=== PATIENT | male | born 1985 | race Asian ===

== ENCOUNTER 2017-10-15 05:50 | Emergency (ER) | payer OTHER ==
--- NOTE | 2017-10-15 05:58 | PDOC ---
History of Present Illness - General Chief Complaint: Pain, Acute Stated Complaint: ABD PAIN Time Seen by Provider: 10/15/17 05:58 History Source: Patient Exam Limitations: No Limitations - History of Present Illness Initial Comments: 10/15/17 06:37 32M with no pmh present with fever, headache, weakness and dark bloody stool since Wednesday morning. No BM yesterday. Tylenol helped briefly with the headache but worse now. Never happened to him before. On amoxicillin regimen a month ago for sinus infection. 10/15/17 06:45 Past History - Past Medical History Allergies/Adverse Reactions: Allergies Allergy/AdvReac Type Severity Reaction Status Date / Time No Known Allergies Allergy Verified 10/15/17 05:57 Home Medications: Ambulatory Orders NK [No Known Home Medication] 02/06/15 Anemia: No Asthma: No Cancer: No Cardiac Disorders: No CVA: No COPD: No CHF: No Dementia: No Diabetes: No GI Disorders: No Disorders: No HTN: No Hypercholesterolemia: No Liver Disease: No Seizures: No Thyroid Disease: No - Surgical History Orthopedic Surgery: Yes (LEFT KNEE ARTHROSCOPY 2013) - Suicide/Smoking/Psychosocial Hx Smoking History: Never smoked Have you smoked in the past 12 months: No Hx Alcohol Use: No Drug/Substance Use Hx: No Substance Use Type: None Review of Systems - Review of Systems Able to Perform ROS?: Yes Is the patient limited Montenegrin proficient: Yes Constitutional: Yes: Diaphoresis, Weakness HEENTM: No: Symptoms Reported Respiratory: No: Symptoms reported Cardiac (ROS): No: Symptoms Reported ABD/GI: Yes: Nausea, Rectal Bleeding. No: Symptoms Reported, Abd. Pain w/ defecation, Constipated, Diarrhea, Vomiting : No: Symptoms Reported Musculoskeletal: No: Symptoms Reported Integumentary: No: Symptoms Reported Neurological: No: Symptoms reported All Other Systems: Reviewed and Negative *Physical Exam - Physical Exam General Appearance: Yes: Nourished, Appropriately Dressed. No: Apparent Distress HEENT: positive: EOMI, BRENNAN Neck: negative: Tender, Other Respiratory/Chest: positive: Lungs Clear, Normal Breath Sounds. negative: Chest Tender, Respiratory Distress Cardiovascular: positive: Regular Rhythm, S1, S2, Tachycardia Gastrointestinal/Abdominal: positive: Normal Bowel Sounds, Flat, Soft. negative : Protuberent, Guarding, Spleenomegaly Rectal Exam: positive: normal exam, normal rectal tone. negative: melena, hemorrhoids Musculoskeletal: positive: Normal Inspection. negative: CVA Tenderness Extremity: positive: Delayed Capillary Refill. negative: Normal Capillary Refill Medical Decision Making - Medical Decision Making 10/15/17 06:50 evaluation of anemia cbc, cmp, stool guaiac NS, zofran, morphine and Ct abdomen with PO and IV contrast 10/15/17 07:05 Patient signed out to Dr. Arango *DC/Admit/Observation/Transfer Diagnosis at time of Disposition: Rectal bleeding - Referrals - Patient Instructions - Post Discharge Activity
[2017-10-15 05:59] VITALS: BMI 28.3
--- NOTE | 2017-10-15 06:18 | PDOC ---
Attending Attestation - Resident Resident Name: Otto Anton - ED Attending Attestation I have performed the following: I have examined & evaluated the patient, The case was reviewed & discussed with the resident, I agree w/resident's findings & plan, Exceptions are as noted - HPI HPI: 10/15/17 06:16 fever, headache, and abdominal pain for 1 day. Last meal was 1pm yesterday. Denies any medical history. Denies any recent travel - Physicial Exam PE: 10/15/17 06:16 *Physical Exam General Appearance: Yes: Appropriately Dressed. No: Apparent Distress, Intoxicated HEENT: positive: EOMI, BRENNAN, Normal ENT Inspection, Normal Voice, TMs Normal, Pharynx Normal. negative: Pale Conjunctivae, Photophobia, Scleral Icterus (R), Scleral Icterus (L) Neck: positive: Trachea midline, Normal Thyroid, Supple. negative: Tender, Rigid, Carotid bruit, Stridor, Lymphadenopathy (R), Lymphadenopathy (L), Thyromegaly Respiratory/Chest: positive: Lungs Clear, Normal Breath Sounds. negative: Chest Tender, Respiratory Distress, Accessory Muscle Use, Labored Respiration, RES, Crackles, Rales, Rhonchi, Stridor, Wheezing, Dullness Cardiovascular: positive: Regular Rhythm, Regular Rate, S1, S2. negative: Edema , JVD, Murmur, Bradycardia, Tachycardia Vascular Pulses: Dorsalis-Pedis (R): 2+, Doralis-Pedis (L): 2+ Gastrointestinal/Abdominal: positive: Normal Bowel Sounds, Flat, Soft. negative : Tender, Organomegaly, Pulsatile Mass, Increased Bowel Sounds, Decreased BS, Distended, Guarding, Rebound, Hernia, Hepatomegaly, Spleenomegaly Lymphatic: negative: Adenopathy, Tenderness Musculoskeletal: positive: Normal Inspection. negative: CVA Tenderness, Decreased Range of Motion Extremity: positive: Normal Capillary Refill, Normal Inspection, Normal Range of Motion, Pelvis Stable. negative: Tender, Pedal Edema, Swelling, Erythema Integumentary: positive: Normal Color, Dry, Warm. negative: Cyanotic, Erythema , Jaundice, Rash Neurologic: positive: optical effects line up person II-XII NML intact, Fully Oriented, Alert, Normal Mood/ Affect, Motor Strength 5/5. negative: EOM Palsy, Facial Droop, Sensory Deficit - Medical Decision Making 10/15/17 06:[address] scan of abd/pel to r/o colitis.
[2017-10-15] MEDS ORDERED: morphine CARPU-JECT 4 MG/1 ML DISP.SYRIN IVPUSH ONE (06:19)
[2017-10-15] MEDS ORDERED: ONDANSETRON 4 MG/2 ML VIAL IVPUSH ONE (06:44)
[2017-10-15] MEDS ORDERED: SODIUM CHLORIDE 1,000 ML IV STA (06:44)
[2017-10-15] MEDS ORDERED: MORPHINE SULFATE 10 MG/1 ML *VIAL ONE (06:45)
[2017-10-15] MEDS ORDERED: ONDANSETRON 4 MG/2 ML VIAL ONE (06:46)
--- NOTE | 2017-10-15 07:13 | PDOC ---
*Physical Exam - Vital Signs Last Vital Signs Temp Pulse Resp BP Pulse Ox 100.4 F H 112 H 20 142/78 99 10/15/17 05:57 10/15/17 05:57 10/15/17 05:57 10/15/17 05:57 10/15/17 05:57 ED Treatment Course - LABORATORY CBC & Chemistry Diagram: 10/15/17 06:25 10/15/17 06:25 - ADDITIONAL ORDERS Additional order review: Laboratory Results 10/15/17 06:20 Stool Occult Blood Negative - Medications Given in the ED: ED Medications Discontinued Medications Generic Name Dose Route Start Last Admin Trade Name Katerine PRN Reason Stop Dose Admin Morphine Sulfate 6 mg 10/15/17 06:19 10/15/17 07:00 Morphine Injection - IVPUSH 10/15/17 06:20 6 mg ONCE ONE Administration Ondansetron HCl 4 mg 10/15/17 06:44 10/15/17 07:00 Zofran Injection IVPUSH 10/15/17 06:45 4 mg ONCE ONE Administration Medical Decision Making - Medical Decision Making 10/15/17 07:12 Care taken over from Dr. Anton. 10/15/17 11:55 Mr. Richardson is a 32 yo male w/ no pmh complaining of fever and stomach pain w/ diarrhea as described by Dr. Anton. CT abdomen showed findings consistent w/ infectious process / proctitis; Stool guiac negative. Will d/c w/ ABX treatment for proctitis and instructions to f/u w/ PCP for further evaluation as needed for further evaluation. Patient verbalized understanding and agreement with this plan and will comply. *DC/Admit/Observation/Transfer Diagnosis at time of Disposition: Rectal bleeding - Discharge Dispostion Disposition: HOME - Prescriptions Prescriptions: Levofloxacin 750 mg PO DAILY #6 tablet Metronidazole [Flagyl] 500 mg PO TID #20 capsule - Referrals Referrals: Reyes Vickers MD [Primary Care Provider] - - Patient Instructions Printed Discharge Instructions: DI for Diarrhea and Traveler's Diarrhea -- Adult Additional Instructions: You were evaluated today for your abdominal symptoms. Please take antibiotics as proscribed and follow-up with your primary care provider for further evaluation. Return to ER if any increase/return of fever, chills, pain, or continuation of symptoms. - Post Discharge Activity
[2017-10-15 07:41] LABS: ALBUMIN 3.9 g/dl (3.4-5.0); ALK PHOS 78 U/L (45-117); ANION GAP 8 (8-16); BILIRUBIN,TOTAL 1.1 mg/dL (0.2-1.0); BLOOD UREA NITROGEN 15 mg/dL (7-18); CALCIUM 8.4 mg/dL (8.5-10.1); CHLORIDE 100 mmol/L (98-107); CO2 28 mmol/L (21-32); CREATININE 1.3 mg/dL (0.7-1.3); GLUCOSE,RANDOM 101 mg/dL (74-106); POTASSIUM 3.6 mmol/L (3.5-5.1); SGOT/AST 10 U/L (15-37); SGPT/ALT 34 U/L (12-78); SODIUM 136 mmol/L (136-145); TOT PROT 7.8 g/dl (6.4-8.2)
[2017-10-15 09:06] LABS: BASO % 0.1 % (0-2.0); HEMOGLOBIN 15.2 GM/dL (11.7-16.9); LYMPH % 9.9 % (8-40); MCH 26.6 pg (25.7-33.7); MCHC 32.4 g/dl (32.0-35.9); MEAN CELL VOLUME 82.3 fl (80-96); MEAN PLT VOLUME 9.6 fl (7.5-11.1); MONO % 7.8 % (3.8-10.2); NEUT % 82.2 % (42.8-82.8); PLATELET COUNT 197 K/MM3 (134-434); RBC 5.71 M/mm3 (4.00-5.60); RDW 13.5 % (11.9-15.9)
[2017-10-15] MEDS ORDERED: ACETAMINOPHEN 1000 MG/100 ML VIAL (NON FORMULARY) IVPB ONE (10:38)
[2017-10-15] MEDS ORDERED: ACETAMINOPHEN INJECTION 100 ML IVPB ONE (10:41)
[2017-10-15] MEDS ORDERED: metroNIDAZOLE 250 MG TABLET PO ONE (11:58)
[2017-10-15] MEDS ORDERED: metroNIDAZOLE 250 MG TABLET ONE (12:07)
[2017-10-15 12:12] VITALS: BP 144/97; PULSE 99; TEMP 98.2
== END 2017-10-15 12:19 | disposition home or self-care (01) ==
LOC: JER 05:50
PROC: 3E033NZ Introduction of Analgesics, Hypnotics, Sedatives into Peripheral Vein, Percutaneous Approach (ICD-10-PCS; principal; 2017-10-15)
PROC: 3E033NZ Introduction of Analgesics, Hypnotics, Sedatives into Peripheral Vein, Percutaneous Approach (ICD-10-PCS; 2017-10-15)
PROC: 3E033GC Introduction of Other Therapeutic Substance into Peripheral Vein, Percutaneous Approach (ICD-10-PCS; 2017-10-15)
DX: K62.89 Other specified diseases of anus and rectum (principal); K62.5 Hemorrhage of anus and rectum
CPT/HCPCS: 36415; 74177-TC; 80053; 82272; 85025; 96374; 96375; 99283-25; J0131; J7030

== ENCOUNTER 2019-01-16 02:00 | Emergency (ER) | payer OTHER ==
[2019-01-16 02:10] VITALS: BMI 32.1
--- NOTE | 2019-01-16 02:17 | PDOC ---
History of Present Illness - General Stated Complaint: CHEST PAIN Time Seen by Provider: 01/16/19 02:09 - History of Present Illness Initial Comments: 01/16/19 02:09 Mr. Richardson is a 33 yo male w/ no pmh who presents for evaluation of L sided chest pain that awoke him from sleep this morning. Patient reports symptoms were not present when he went to bed. Reports holding his fist to his chest improves his pain. He is also experiencing cough at this time in addition to his pain. Has never had symptoms like this before and has not taken anything for his pain. The patient denies shortness of breath, headache and dizziness. Denies fever, chills, nausea, vomit, diarrhea and constipation. Denies dysuria, frequency, urgency and hematuria. Past History - Past Medical History Allergies/Adverse Reactions: Allergies Allergy/AdvReac Type Severity Reaction Status Date / Time No Known Allergies Allergy Verified 01/16/19 07:09 Home Medications: Ambulatory Orders NK [No Known Home Medication] 01/16/19 Anemia: No Asthma: No Cancer: No Cardiac Disorders: No CVA: No COPD: No CHF: No Dementia: No Diabetes: No GI Disorders: No Disorders: No HTN: No Hypercholesterolemia: No Liver Disease: No Seizures: No Thyroid Disease: No - Surgical History Orthopedic Surgery: Yes (LEFT KNEE ARTHROSCOPY 2013) - Immunization History Immunization Up to Date: Yes - Suicide/Smoking/Psychosocial Hx Smoking History: Never smoked Have you smoked in the past 12 months: No Hx Alcohol Use: No Drug/Substance Use Hx: No Substance Use Type: None Review of Systems - Review of Systems Comments:: 01/16/19 02:17 GENERAL/CONSTITUTIONAL: No fever or chills. No weakness. HEAD, EYES, EARS, NOSE AND THROAT: No change in vision. No ear pain or discharge. No sore throat. CARDIOVASCULAR: +Chest pain as described. No shortness of breath RESPIRATORY: No cough, wheezing, or hemoptysis. GASTROINTESTINAL: No nausea, vomiting, diarrhea or constipation. GENITOURINARY: No dysuria, frequency, or change in urination. MUSCULOSKELETAL: No joint or muscle swelling or pain. No neck or back pain. SKIN: No rash NEUROLOGIC: No headache, vertigo, loss of consciousness, or change in strength/ sensation. ENDOCRINE: No increased thirst. No abnormal weight change HEMATOLOGIC/LYMPHATIC: No anemia, easy bleeding, or history of blood clots. ALLERGIC/IMMUNOLOGIC: No hives or skin allergy. *Physical Exam - Physical Exam Comments: 01/16/19 02:17 GENERAL: Awake, alert, and fully oriented, in no acute distress HEAD: No signs of trauma, normocephalic, atraumatic EYES: PERRLA, EOMI, sclera anicteric, conjunctiva clear ENT: Auricles normal inspection, hearing grossly normal, nares patent, oropharynx clear without exudates. Moist mucosa NECK: Normal ROM, supple, no lymphadenopathy, JVD, or masses LUNGS: No distress, speaks full sentences, clear to auscultation bilaterally HEART: Regular rate and rhythm, normal S1 and S2, no murmurs, rubs or gallops, peripheral pulses normal and equal bilaterally. ABDOMEN: Soft, nontender, normoactive bowel sounds. No guarding, no rebound. No masses EXTREMITIES: Normal inspection, Normal range of motion, no edema. No clubbing or cyanosis. NEUROLOGICAL: Cranial nerves II through XII grossly intact. Normal speech, normal gait, no focal sensorimotor deficits SKIN: Warm, Dry, normal turgor, no rashes or lesions noted. ED Treatment Course - LABORATORY CBC & Chemistry Diagram: 01/16/19 02:51 01/16/19 02:51 Medical Decision Making - Medical Decision Making 01/16/19 07:26 Mr. Richardson is a 33 yo male w/ no pmh who presents for evaluation of symptoms concerning for MSK pain vs. PE vs. ACS. Patient evaluated with labs as below as well as EKG and CXR. EKG normal sinus rhythm. CXR negative. Labs grossly wnl as below. No concern for acute process at this time and believe pain 2/2 msk injury. No concern for acute process at this time. Discharging patient to home for further outpatient evaluation. Laboratory Results - last 24 hr 01/16/19 01/16/19 01/16/19 02:51 02:51 02:51 WBC 9.4 RBC 5.49 Hgb 15.2 Hct 45.7 MCV 83.4 MCH 27.6 MCHC 33.1 RDW 13.4 Plt Count 215 MPV 9.5 Absolute Neuts (auto) 5.9 Neutrophils % 62.2 D Lymphocytes % 29.4 D Monocytes % 6.6 Eosinophils % 1.1 D Basophils % 0.7 D Nucleated RBC % 0 PT with INR 10.60 INR 0.90 PTT (Actin FS) 33.8 D-Dimer Sodium 140 Potassium 4.4 Chloride 108 H Carbon Dioxide 26 Anion Gap 6 L BUN 18 Creatinine 1.1 Est GFR (CKD-EPI)AfAm 102.40 Est GFR (CKD-EPI)NonAf 88.36 Random Glucose 122 H Calcium 8.7 Total Bilirubin 0.4 AST 34 ALT 45 Alkaline Phosphatase 59 Creatine Kinase 180 Creatine Kinase Index 0.5 CK-MB (CK-2) < 1.0 Troponin I < 0.02 Total Protein 7.2 Albumin 3.6 Lipase 224 01/16/19 01/16/19 05:33 05:33 WBC RBC Hgb Hct MCV MCH MCHC RDW Plt Count MPV Absolute Neuts (auto) Neutrophils % Lymphocytes % Monocytes % Eosinophils % Basophils % Nucleated RBC % PT with INR INR PTT (Actin FS) D-Dimer 291 Sodium Potassium Chloride Carbon Dioxide Anion Gap BUN Creatinine Est GFR (CKD-EPI)AfAm Est GFR (CKD-EPI)NonAf Random Glucose Calcium Total Bilirubin AST ALT Alkaline Phosphatase Creatine Kinase Creatine Kinase Index CK-MB (CK-2) Troponin I < 0.02 Total Protein Albumin Lipase *DC/Admit/Observation/Transfer Diagnosis at time of Disposition: Chest pain Qualifiers: Chest pain type: unspecified Qualified Code(s): R07.9 - Chest pain, unspecified - Discharge Dispostion Disposition: HOME - Referrals Referrals: Reyes Vickers MD [Primary Care Provider] - - Patient Instructions Printed Discharge Instructions: DI for Atypical Chest Pain Additional Instructions: You were evaluated today in the ER for your chest pain. We performed EKG, Chest Xray, and labs without any concerning findings. We do not believe anything emergent is occurring at this time. You may take over the counter motrin or tylenol per package instructions for further pain control. Please follow-up with primary care provider later this week for further evaluation. Return to ER if any fever, chills, increase in pain, difficulty breathing, or other concerning symptoms. - Post Discharge Activity
[2019-01-16] MEDS ORDERED: ACETAMINOPHEN 1000 MG/100 ML VIAL (NON FORMULARY) IVPB ONE (02:25)
[2019-01-16] MEDS ORDERED: ASPIRIN 81 MG CHEWABLE TABLETS PO ONE (02:25)
[2019-01-16] MEDS ORDERED: ASPIRIN 81 MG CHEWABLE TABLETS ONE (02:39)
[2019-01-16] MEDS ORDERED: ACETAMINOPHEN INJECTION 100 ML IVPB ONE (02:40)
[2019-01-16 03:02] LABS: BASO % 0.7 % (0-2.0); EOS % 1.1 % (0-4.5); HEMATOCRIT 45.7 % (35.4-49); HEMOGLOBIN 15.2 GM/dL (11.7-16.9); LYMPH % 29.4 % (8-40); MCH 27.6 pg (25.7-33.7); MCHC 33.1 g/dl (32.0-35.9); MEAN CELL VOLUME 83.4 fl (80-96); MEAN PLT VOLUME 9.5 fl (7.5-11.1); MONO % 6.6 % (3.8-10.2); NEUT % 62.2 % (42.8-82.8); PLATELET COUNT 215 K/MM3 (134-434); RBC 5.49 M/mm3 (4.00-5.60); RDW 13.4 % (11.9-15.9); WHITE BLOOD COUNT 9.4 K/mm3 (4.0-10.0)
[2019-01-16 03:14] LABS: INR 0.9 (0.83-1.09); PROTHROMBIN TIME (PATIENT) 10.6 SEC (9.7-13.0)
[2019-01-16 03:16] LABS: ACTIVATED PTT 33.8 SECONDS (25.2-36.5)
[2019-01-16 03:53] LABS: ALBUMIN 3.6 g/dl (3.4-5.0); ALK PHOS 59 U/L (45-117); ANION GAP 6 MMOL/L (8-16); BILIRUBIN,TOTAL 0.4 mg/dL (0.2-1); BLOOD UREA NITROGEN 18 mg/dL (7-18); CALCIUM 8.7 mg/dL (8.5-10.1); CHLORIDE 108 mmol/L (98-107); CO2 26 mmol/L (21-32); CREATININE 1.1 mg/dL (0.55-1.3); GLUCOSE,RANDOM 122 mg/dL (74-106); LIPASE 224 U/L (73-393); POTASSIUM 4.4 mmol/L (3.5-5.1); SGOT/AST 34 U/L (15-37); SGPT/ALT 45 U/L (13-61); SODIUM 140 mmol/L (136-145); TOT PROT 7.2 g/dl (6.4-8.2)
[2019-01-16] MEDS ORDERED: KETOROLAC TROMETHAMINE 30 MG/1 ML VIAL IVPUSH ONE (06:10)
[2019-01-16] MEDS ORDERED: KETOROLAC TROMETHAMINE 30 MG/1 ML VIAL ONE (06:20)
[2019-01-16 07:02] VITALS: BP 111/69; PULSE 67; TEMP 97.8
--- NOTE | 2019-01-16 11:01 | EKG ---
Test Reason : Blood Pressure : / mmHG Vent. Rate : 081 BPM Atrial Rate : 081 BPM P-R Int : 166 ms QRS Dur : 094 ms QT Int : 378 ms P-R-T Axes : 050 023 033 degrees QTc Int : 439 ms NORMAL SINUS RHYTHM NORMAL ECG NO PREVIOUS ECGS AVAILABLE Confirmed by OSMAN AGUILAR MD ([id number]) on 01/16/2019 11:01:00 AM Referred By: Confirmed By:OSMAN AGUILAR MD
== END 2019-01-16 07:56 | disposition home or self-care (01) ==
LOC: JER 02:00
PROC: 3E033NZ Introduction of Analgesics, Hypnotics, Sedatives into Peripheral Vein, Percutaneous Approach (ICD-10-PCS; principal; 2019-01-16)
PROC: 3E0333Z Introduction of Anti-inflammatory into Peripheral Vein, Percutaneous Approach (ICD-10-PCS; 2019-01-16)
DX: R07.9 Chest pain, unspecified (principal)
CPT/HCPCS: 36415; 71045-TC-FY; 80053; 82550; 82553; 83690; 84484; 85025; 85379; 85610; 85730; 93005; 93010; 96374; 96375; 99285-25; J0131

== ENCOUNTER 2019-11-13 17:49 | Emergency (ER) | payer OTHER ==
--- NOTE | 2019-11-13 17:54 | PDOC ---
Rapid Medical Evaluation Time Seen by Provider: 11/13/19 17:51 Medical Evaluation: Allergies Allergy/AdvReac Type Severity Reaction Status Date / Time No Known Allergies Allergy Verified 01/16/19 07:09 11/13/19 17:51 Pt c/o: sore throat, nasal congestion, prod cough, headache since yesterday, worse today. Denies travel , recent sick contacts , or been in areas or contact with those infected or suspected with COVID. Pt denies resp illness, smoking, headache, cp, sob, fever, chills, or palpitations. Pt on brief exam: vss, nasal voice, lcta Pt ordered for: none pt to proceed to the ED Discharge Disposition - Diagnosis Sore throat - Referrals - Patient Instructions - Post Discharge Activity
[2019-11-13 17:55] VITALS: BP 126/89; PULSE 89; TEMP 99.3; BMI 33.5
--- NOTE | 2019-11-13 18:25 | PDOC ---
History of Present Illness - General Chief Complaint: Cold Symptoms Stated Complaint: SORETHROAT/NASAL CONGESTION Time Seen by Provider: 11/13/19 17:51 - History of Present Illness Initial Comments: 11/13/19 18:24 34-year-old male without comorbidities presents for headache and cough x1 day Past History - Past Medical History Allergies/Adverse Reactions: Allergies Allergy/AdvReac Type Severity Reaction Status Date / Time No Known Allergies Allergy Verified 11/13/19 17:52 Home Medications: Ambulatory Orders Guaifenesin Dm [Mucinex Dm -] 1 tab PO BID #60 tab.er.12h 11/13/19 Ibuprofen [Advil -] 600 mg PO QID PRN 11/13/19 Anemia: No Asthma: No Cancer: No Cardiac Disorders: No CVA: No COPD: No CHF: No Dementia: No Diabetes: No GI Disorders: No Disorders: No HTN: No Hypercholesterolemia: No Liver Disease: No Seizures: No Thyroid Disease: No - Surgical History Orthopedic Surgery: Yes (LEFT KNEE ARTHROSCOPY 2013) - Immunization History Immunization Up to Date: Yes - Psycho Social/Smoking Cessation Hx Smoking History: Never smoked Have you smoked in the past 12 months: No Hx Alcohol Use: No Drug/Substance Use Hx: No Substance Use Type: None Review of Systems - Review of Systems Constitutional: Yes: Fever Respiratory: Yes: Cough *Physical Exam - Vital Signs Last Vital Signs Temp Pulse Resp BP Pulse Ox 99.3 F 89 18 126/89 98 11/13/19 17:52 11/13/19 17:52 11/13/19 17:52 11/13/19 17:52 11/13/19 17:52 - Physical Exam 11/13/19 18:24 GENERAL: The patient is awake, alert, and fully oriented, in no acute distress. HEAD: Normal with no signs of trauma. EYES: sclera anicteric, conjunctiva clear. ENT: Ears normal tympanic membranes normal oropharynx clear uvula midline NECK: Normal range of motion LUNGS: Breath sounds equal, clear to auscultation bilaterally. No wheezes, and no crackles. HEART: S1 and S2 without murmur, rub or gallop. ABDOMEN: Soft, nontender, normoactive bowel sounds. No guarding, no rebound. No masses. EXTREMITIES: Normal range of motion, no edema. No clubbing or cyanosis. No cords, erythema, or tenderness. NEUROLOGICAL: Cranial nerves II through XII grossly intact. PSYCH: Normal mood, normal affect. SKIN: Warm, Dry, normal turgor, no rashes or lesions noted. Medical Decision Making - Medical Decision Making 11/13/19 18:24 Supportive care for viral upper respiratory infection I have reviewed the pathophysiology with the patient. They are in agreement with the treatment plan all questions were answered to their satisfaction. Understanding for follow-up without fail was also conveyed to the patient. Again they are in agreement. Discharge - Discharge Information Problems reviewed: Yes Clinical Impression/Diagnosis: Sore throat, Viral URI with cough Condition: Stable Disposition: HOME - Admission No - Follow up/Referral Referrals: Reyes Vickers MD [Primary Care Provider] - - Patient Discharge Instructions Additional Instructions: Supportive care. Maintain hydration with Pedialyte. Tylenol and Motrin as directed for fever and body aches. Return to the emergency room for worsening symptoms. And without fail follow-up with your primary care physician in 1 to 2 days for further evaluation and treatment options. - Post Discharge Activity Work/Back to School Note: Back to Work
[2019-11-13] MEDS ORDERED: ACETAMINOPHEN 500 MG TABLET (FP) PO ONE (18:27)
[2019-11-13] MEDS ORDERED: ACETAMINOPHEN 500 MG TABLET (FP) ONE (18:28)
== END 2019-11-13 18:26 | disposition home or self-care (01) ==
LOC: JER 17:49 → JERFT 17:49
DX: J02.9 Acute pharyngitis, unspecified (principal); J06.9 Acute upper respiratory infection, unspecified; B97.89 Other viral agents as the cause of diseases classified elsewhere
CPT/HCPCS: 99283-25